=== PATIENT | female | born 1995 | race Caucasian/White ===

== ENCOUNTER 2017-06-11 13:45 | Day surgery (SDC) | payer BC ==
[~2017-06-11] VITALS: Ht 160 cm; Wt 73.2 kg
[2017-06-11] VITALS (7 sets, daily range): BP systolic 95–127; BP diastolic 67–89; PULSE 75–103; TEMP 98.2–98.3
[2017-06-11] MEDS ORDERED: TROKEND100 PO (14:39)
[2017-06-11] MEDS ORDERED: LEXAPRO 10MG10 MG PO (14:39)
[2017-06-11] MEDS ORDERED: LORYNA 3 MG-0.01 TAB PO (14:40)
[2017-06-11] MEDS ORDERED: ADDERALL10 MG PO (14:40)
== END 2017-06-11 16:57 | disposition home or self-care (01) ==
LOC: SDCO 13:45
DX: K21.0 Gastro-esophageal reflux disease with esophagitis (principal); K30 Functional dyspepsia; K52.9 Noninfective gastroenteritis and colitis, unspecified; K59.00 Constipation, unspecified; K25.9 Gastric ulcer, unspecified as acute or chronic, without hemorrhage or perforation
CPT/HCPCS: J2250; J2405; J3010; J7030

== ENCOUNTER → 2017-09-26 | Outpatient (CLI) | payer BC ==
[~2017-09-26] MED LIST: ADDERALL10 MG PO; LEXAPRO 10MG10 MG PO; LORYNA 3 MG-0.01 TAB PO; TROKEND100 PO
== END ==
LOC: COL.RAD 07:56
DX: S73.192A Other sprain of left hip, initial encounter (principal); M25.852 Other specified joint disorders, left hip
CPT/HCPCS: A9585; J3301; Q9967

== ENCOUNTER → 2017-11-13 | Outpatient (CLI) | payer BC ==
[2017-11-13 14:33] LABS: CALCIUM 9.6 mg/dL (8.4-10.2); CREATININE, serum 0.73 mg/dL (0.52-1.25); POTASSIUM 3.9 mmol/L (3.4-5.0)
[2017-11-13 14:34] LABS: HEMATOCRIT 40.5 % (37.0-47.0); HEMOGLOBIN 13.8 g/dl (12.5-16.0); MEAN CELL VOLUME 91 fl (80.0-100.0); MEAN CORPUSCULAR HEMOGLOBIN 31 pg (27.0-31.0); MEAN CORPUSCULAR HGB CONC 34 g/dl (33.0-37.0); MEAN PLATELET VOLUME 9.3 fl (7.4-10.4); PLATELET COUNT 273 K/mm3 (130-400); RED BLOOD COUNT 4.46 M/mm3 (4.10-5.30); REDCELL DISTRIBUTION WIDTH-CV 11.9 % (11.5-14.5)
== END ==
LOC: COL.LAB 13:45
PROVIDERS: Physician Assistant Medical
DX: R07.81 Pleurodynia (principal); R06.00 Dyspnea, unspecified

== ENCOUNTER → 2017-11-24 | Outpatient (CLI) | payer BC | LOC: COL.PUL 11-21 08:00 | DX: R06.02 Shortness of breath (principal); R05 Cough ==

== ENCOUNTER → 2018-03-17 | Outpatient (CLI) | payer BC | LOC: ZCOL.LAB 17:34 | DX: Z01.812 Encounter for preprocedural laboratory examination (principal); Z86.14 Personal history of Methicillin resistant Staphylococcus aureus infection ==

== ENCOUNTER → 2021-03-02 | Outpatient (CLI) | payer SELFPAY ==
[~2021-03-02] MED LIST changes: +CALCIUM 600 PLU1 TAB PO; +IBU800 M1 PO; +MEDROL 4MG DOSPA4 MG PO; +PERCOCET 325 MG1 TA2 PO; +PRENATAL TABLET PO; +TRIAMCINOLONE A15 G3 TP; +TYLENOL 500MG500 MG PO; +ZYRTEC ALLERGY10 MG PO
== END ==
LOC: ZCOL.LAB 08:00
DX: Z20.822 Contact with and (suspected) exposure to COVID-19 (principal)

== ENCOUNTER 2021-03-06 11:18 | Inpatient (IN) | payer BC ==
[2021-03-06] VITALS (8 sets, daily range): BP systolic 110–133; BP diastolic 59–76; PULSE 86–106; TEMP 98.6
[~2021-03-06] VITALS: Ht 160 cm; Wt 105.5 kg
[~2021-03-06 11:18] MED LIST changes: -CALCIUM 600 PLU1 TAB PO; -IBU800 M1 PO; -MEDROL 4MG DOSPA4 MG PO; -PERCOCET 325 MG1 TA2 PO; -PRENATAL TABLET PO; -TRIAMCINOLONE A15 G3 TP; -TYLENOL 500MG500 MG PO; -ZYRTEC ALLERGY10 MG PO
--- NOTE | 2021-03-06 19:05 | NUR ---
190- PATIENT AND SPOUSE ABULATORY TO OUR UNIT. PATIENT ORIENTATED TO ROOM AND CHANGED INTO CLEAN GOWN. 1909- THIS RN TO ROOM, DISCUSSSED NEEDING POSSIBLE UA AND EXTRA LAB SINCE HERE EARLY FOR THE MILD PRE-ECLAMPSIA. PATIENT VERBALIZED UNDERSTANDING AND WENT TO RESTROOM TO GET SAMPLE. 1914- EFM AND TOCO ON AND TRACING. PATIENT REPORTS GFM, SOME CRAMPING BUT NO REAL CONTRACTIONS AND DENIES LOF OR BLEEDING. DISCUSSED PLAN OF CARE FOR THE EVENING. VITALS TAKEN, ASSESSMENT COMPLETED, IV STARTED. PATIENT DENIES FURTHER NEEDS. CALL LIGHT WITHIN REACH.
[2021-03-06] MEDS ORDERED: ZYRTEC ALLERGY10 MG PO (19:50)
[2021-03-06] MEDS ORDERED: PRENATAL TABLET PO (19:50)
[2021-03-06] MEDS ORDERED: CALCIUM 600 PLU1 TAB PO (19:50)
[2021-03-06] MEDS ORDERED: TYLENOL 500MG500 MG PO (19:52)
[2021-03-06 20:43] LABS: COLLECTION METHOD CLEAN CATCH
[2021-03-06] MEDS ORDERED: MEDROL 4MG DOSPA4 MG PO (20:57)
[2021-03-06] MEDS ORDERED: TRIAMCINOLONE A15 G3 TP (20:57)
[2021-03-06 20:59] LABS: ALANINE AMINOTRANSFERASE 16 U/L (4-34); ALBUMIN 3.3 gm/dL (3.5-5.0); ALKALINE PHOSPHATASE 118 U/L (50-136); ANION GAP 8 mmol/L (7-16); AST,SGOT 20 U/L (15-37); BILIRUBIN,TOTAL < 0.1 mg/dL (0.0-1.0); BLOOD UREA NITROGEN 5 mg/dL (7-17); CALCIUM 8.7 mg/dL (8.4-10.2); CARBON DIOXIDE 22 mmol/L (22-30); CHLORIDE 106 mmol/L (98-107); CREATININE, serum 0.39 (0.52-1.25); GLUCOSE 81 mg/dL (74-106); POTASSIUM 3.5 mmol/L (3.4-5.0); SODIUM 137 mmol/L (137-145); TOTAL PROTEIN 6.3 gm/dL (6.4-8.2)
[2021-03-06 21:03] LABS: HEMOGLOBIN 12.3 g/dl (12.5-16.0); MEAN CELL VOLUME 93 fl (80.0-100.0); MEAN CORPUSCULAR HEMOGLOBIN 31 pg (27.0-31.0); MEAN CORPUSCULAR HGB CONC 34 g/dl (33.0-37.0); MEAN PLATELET VOLUME 10.1 fl (7.4-10.4); PLATELET COUNT 209 K/mm3 (130-400); RED BLOOD COUNT 3.93 M/mm3 (4.10-5.30); REDCELL DISTRIBUTION WIDTH-CV 13.2 % (11.5-14.5)
[2021-03-06 21:05] LABS: HEMATOCRIT 36.6 % (37.0-47.0)
[2021-03-06 21:07] LABS: PH 7 (5-8); SQUAMOUS EPITHELIAL 0-2 /hpf; URINE APPEARANCE Clear; URINE BACTERIA Rare /hpf; URINE BILIRUBIN Negative (NEGATIVE); URINE BLOOD Negative (NEGATIVE); URINE COLOR Straw; URINE GLUCOSE Negative (NEGATIVE); URINE KETONE Negative (NEGATIVE); URINE LEUKOCYTE ESTERASE Negative (NEGATIVE); URINE NITRATE Negative (NEGATIVE); URINE PROTEIN(semi-quant) Negative (NEGATIVE); URINE RBC 0-2 /hpf; URINE UROBILINOGEN Negative (NEGATIVE); URINE WBC 0-2 /hpf
[2021-03-06 21:27] LABS: LYMPHOCYTE 21 % (20.0-51.0); NEUTROPHILS 70 % (42.0-75.2); PLATELET ESTIMATE NORMAL (NORMAL)
[2021-03-07] VITALS (55 sets, daily range): BP systolic 110–148; BP diastolic 55–666; PULSE 52–116; TEMP 98.1–98.3
--- NOTE | 2021-03-07 05:55 | NUR ---
0555- THIS RN TO BEDSIDE TO REPLACE PAPER IN FHR MACHINE. PATIENT REQUESTING TO GO TO THE BATHROOM AT THIS TIME WELL. HELPED PATIENT GET DISCONNECTED FROM EVERYTHING. HAD PREVIOUSLY DISCUSSED WITH PATIENT ABOUT FRESHENING UP AROUND THIS TIME BEFORE DAYSHIFT ARRIVED AND PATIENT DECIDED SHE WOULD LIKE TO DO THAT NOW. ADVISED SINCE FHR TRACING HAD BEEN GOOD AND NOT EDDA TOO MUCH THAT SHE WAS OKAY TO COME OFF THE MONITOR FOR A LITTLE WHILE TO STRETCH HER LEGS, SHOWER, FRESHEN UP FOR THE DAY AND WOULD BE PUT BACK ON IN 20-30 MINUTES MOST LIKELY BY DAYSHIFT. SHE VERBALIZED UNDERSTANDING WITH NO FURTHER QUESTIONS. CALL LIGHT WITHIN REACH.
--- NOTE | 2021-03-07 10:15 | NUR ---
AT BEDSIDE, SVE /3, UNABLE TO RUPTURE MEMBRANES AT THIS TIME, WILL ATTEMPT AGAIN THIS AFTERNOON, REVIEWS FHR STRIP, NO NEW ORDERS AT THIS TIME, CONTINUE EXPECTANT MANAGEMENT OF LABOR
--- NOTE | 2021-03-07 10:45 | NUR ---
PT UP TO RESTROOM, MONITORS REMOVED TO ALLOW PT TO USE RESTROOM, ATTEMPTING TO HAVE A BM, THIS NURSE CHECKS ON PT MULTIPLE TIMES, MODERATE FIRM CONTRACTION WITH PALPATION, MOVEMENT NOTED, PT SMILING AND APPEARS COMFORTABLE, DENIES WORSENING SYMPTOMS WHILE ON TOILET 1101: PT ASSISTED BACK TO ROCKING CHAIR, PLACED BACK ON MONITORS, FHR AUDIBLE
--- NOTE | 2021-03-07 12:25 | NUR ---
AT BEDSIDE, SVE /-2, DID NOT RUPTURE MEMBRANES DUE TO MINIMAL CHANGE SINCE LAST CHECK THIS AM, DISCUSSES PLAN OF CARE WITH PT AND POTENTIAL THAT IF PT DOES NOT MAKE CHANGE SHE MAY BE SENT BACK HOME TO REATTEMPT IOL IN A COUPLE DAYS, PT AGREEABLE TO PLAN OF CARE, VERBAL ORDERS TO CONTINUE TO INCREASE PITOCIN UNTIL NEW MAX 30, INCREASED TO 22 AT 1235 PER VERBAL ORDERS
--- NOTE | 2021-03-07 17:25 | NUR ---
PITOCIN AND LR STOPPED AT THIS TIME PER
--- NOTE | 2021-03-07 17:38 | NUR ---
AT BEDSIDE, SVE /2, ORDERS TO STOP PITOCIN, DISCUSSES PLAN OF CARE WITH PATIENT AND CURRENT PLAN IS FOR PT TO RETURN FRIDAY AT 1000 FOR ANOTHER ATTEMPT AT IOL, PT AGREEABLE, CALM AND COOPERATIVE, DENIES FURTHER QUESTIONS OR NEEDS AT THIS TIME, EDUCATES PT TO CHECK HER BP TOMORROW AND IF ELEVATED TO CALL CLINIC, PT AGREEABLE TO PLAN, PITOCIN STOPPED AT THIS TIME, CONTINUING TO MONITOR TOCO AND FHR
--- NOTE | 2021-03-07 18:00 | NUR ---
ALL DC PAPERWORK AND INSTRUCTIONS REVIEWED AND UNDERSTOOD BY PT AND SPOUSE, NO FURTHER QUESTIONS AT THIS TIME, IV DC'D TO LEFT HAND, WILL CONTINUE TO MONITOR PATIENT UNTIL 1805 PER
--- NOTE | 2021-03-07 18:05 | NUR ---
Cat 1 FHR strip obtained. Pt taken off monitors. Leaves unit ambulatory.
== END 2021-03-07 18:05 | disposition home or self-care (01) | DRG 833 ==
LOC: OB 11:18 → LDR 19:01
PROVIDERS: ADMIT Student in an Organized Health Care Education/Training Program
PROC: 3E0P7VZ Introduction of Hormone into Female Reproductive, Via Natural or Artificial Opening (ICD-10-PCS; principal; 2021-03-07)
PROC: 3E033VJ Introduction of Other Hormone into Peripheral Vein, Percutaneous Approach (ICD-10-PCS; 2021-03-07)
DX: O11.3 Pre-existing hypertension with pre-eclampsia, third trimester (principal); Z3A.37 37 weeks gestation of pregnancy; O99.343 Other mental disorders complicating pregnancy, third trimester; O99.213 Obesity complicating pregnancy, third trimester; E66.9 Obesity, unspecified; O29.43 Spinal and epidural anesthesia induced headache during pregnancy, third trimester; F32.9 Major depressive disorder, single episode, unspecified; F41.9 Anxiety disorder, unspecified; O33.9 Maternal care for disproportion, unspecified
CPT/HCPCS: J2590; J7120

== ENCOUNTER 2021-03-09 09:34 | Inpatient (IN) | payer BC ==
[2021-03-09] VITALS (48 sets, daily range): BP systolic 100–146; BP diastolic 51–96; PULSE 85–113; TEMP 98–98.7
[~2021-03-09] VITALS: Ht 160 cm; Wt 105.5 kg
[~2021-03-09 09:34] MED LIST changes: +CALCIUM 600 PLU1 TAB PO; +MEDROL 4MG DOSPA4 MG PO; +PRENATAL TABLET PO; +TRIAMCINOLONE A15 G3 TP; +TYLENOL 500MG500 MG PO; +ZYRTEC ALLERGY10 MG PO
--- NOTE | 2021-03-09 10:30 | NUR ---
1030- 37.3, G1L0 arrives on unit for scheduled IOL for PreE. Ambualtory to LDR4 with spouse. Patient reports normal movement, and mild cramping. Denies any LOF, VB, or regular contractions. Oriented to room and plan of care. 1037- EFM explained and placed x2. VS obtained, assessment completed. Consent forms explained and signed. 1045- IV to right FA. Routine labs obtained via site. IVF infusing. 1105- Pitocin explained and started per orders. 1128- To birthing ball. EFM difficult to trace due to maternal position. RN at bedside adj. EFM.
[2021-03-09 11:18] LABS: HEMATOCRIT 37.9 % (37.0-47.0); MEAN CELL VOLUME 92 fl (80.0-100.0); MEAN CORPUSCULAR HEMOGLOBIN 32 pg (27.0-31.0); MEAN CORPUSCULAR HGB CONC 34 g/dl (33.0-37.0); MEAN PLATELET VOLUME 9.9 fl (7.4-10.4); PLATELET COUNT 188 K/mm3 (130-400); RED BLOOD COUNT 4.12 M/mm3 (4.10-5.30); REDCELL DISTRIBUTION WIDTH-CV 13.2 % (11.5-14.5)
[2021-03-09 12:02] LABS: BAND 15 % (0-10); LYMPHOCYTE 14 % (20.0-51.0); METAMYELOCYTE 3 % (0-0); NEUTROPHILS 60 % (42.0-75.2); PLATELET ESTIMATE NORMAL (NORMAL)
--- NOTE | 2021-03-09 14:15 | NUR ---
RN to bedside. Patient reports leaking small amount of vaginal fluid. Amnitest negative, no fluid noted. Pads applied. Will cont. to monitor.
--- NOTE | 2021-03-09 14:45 | NUR ---
1445- Left side lying hip release. 1455- Dr. Marquez to bedside and reviews POC with patient and spouse. AROM for moderate amount clear fluids. SVE per provider /-2. [place]odi care and patient wedge left. 1515- Right side lying hip release.
[2021-03-10] VITALS (53 sets, daily range): BP systolic 87–139; BP diastolic 38–81; PULSE 91–117; TEMP 98–99.1
--- NOTE | 2021-03-10 06:20 | NUR ---
Bedside report received from Jaiden PHILIPPE. Patient resting at this time and has no needs. 0635: SVE- /-2 and patient right lateral with peanut ball in place. Patient updated on plan of care and resting. 0645: Dr. Marquez updated and orders to increase pitocin to 30mu/hr. 0830: Dr. Rodriguez at bedside and assessing patient and FHR strip. SVE- 3-2. Plan of care and options discussed. Patient and spouse given time to discuss options. 0845: Patient agrees with plan of csection at this time. Plan and risk factors discussed. Questions answered. Pitocin off at this time. Patient prepped for csection. 0855: Patient off monitors and to OR.
--- NOTE | 2021-03-10 16:10 | NUR ---
Patient sits on edge of bed with feet dangled. Epidural catheter removed at this time and patient tolerates well. Patient to bathroom with standby assist. Westfall catheter removed and patient tolerates well. Pericare done, new gown, underwear, and pad on. Abdominal binder adjusted. Patient ambulates to wheelchair and to nursery to see infant.
--- NOTE | 2021-03-10 18:30 | NUR ---
Report recieved. Resting in bed at this time. Updated whiteboard and reviewed POC.
[2021-03-11 00:15] VITALS: BP 114/69; PULSE 88; TEMP 97.7
[2021-03-11 04:20] VITALS: BP 110/66; PULSE 96; TEMP 97.5
[2021-03-11 08:10] VITALS: BP 129/80; PULSE 101; TEMP 98
[2021-03-11 16:00] VITALS: BP 146/86; PULSE 97; TEMP 97.7
[2021-03-11 18:52] VITALS: BP 129/76; PULSE 91; TEMP 98.1
[2021-03-12 07:25] VITALS: BP 124/78; PULSE 98; TEMP 98.4
[2021-03-12] MEDS ORDERED: IBU800 M1 PO (08:20)
[2021-03-12] MEDS ORDERED: PERCOCET 325 MG1 TA2 PO (08:20)
--- NOTE | 2021-03-12 10:08 | NUR ---
Initial visit attempt; Nurse with patient. Parts Driver left card of congratulations and God's blessings for the of her daughter and information regarding the availability of spiritual care at [facility]/via [facility].
== END 2021-03-12 14:20 | disposition home or self-care (01) | DRG 787 ==
LOC: LDR 09:34 → OB 03-10 10:22
PROVIDERS: ADMIT Student in an Organized Health Care Education/Training Program
PROC: 10D00Z1 Extraction of Products of Conception, Low, Open Approach (ICD-10-PCS; principal; 2021-03-09)
DX: O36.63X0 Maternal care for excessive fetal growth, third trimester, not applicable or unspecified (principal); O10.92 Unspecified pre-existing hypertension complicating childbirth; O99.344 Other mental disorders complicating childbirth; F41.9 Anxiety disorder, unspecified; O99.214 Obesity complicating childbirth; E66.9 Obesity, unspecified; O62.1 Secondary uterine inertia; Z3A.37 37 weeks gestation of pregnancy; Z37.0 Single live birth
CPT/HCPCS: J0690; J1885; J2370; J2400; J2405; J2590; J2795; J7120